=== PATIENT | male | born 1955 | race Caucasian/White ===

== ENCOUNTER → 2023-12-28 06:22 | Day surgery (SDC) | payer BC, SELFPAY | LOC: GI 06:22 | PROVIDERS: ATTENDING PHYSICIAN Internal Medicine Gastroenterology; FAMILY PHYSICIAN Family Medicine | DX: Z12.11 Encounter for screening for malignant neoplasm of colon (principal); K64.8 Other hemorrhoids; K57.50 Diverticulosis of both small and large intestine without perforation or abscess without bleeding; R12 Heartburn; K29.50 Unspecified chronic gastritis without bleeding; K31.89 Other diseases of stomach and duodenum; Z13.810 Encounter for screening for upper gastrointestinal disorder; Z86.010 Personal history of colon polyps | CPT/HCPCS: 43239; G0105; 88305; 88342 ==

== ENCOUNTER → 2024-10-31 11:58 | Outpatient (REF) | payer MEDICARE, SELFPAY | LOC: REG 11:58 | PROVIDERS: ATTENDING PHYSICIAN Internal Medicine; FAMILY PHYSICIAN Family Medicine | DX: R05.3 Chronic cough (principal) | CPT/HCPCS: 71046 ==